=== PATIENT | female | born 1945 | race Two or more races ===

== ENCOUNTER 2021-04-26 18:46 | Inpatient (IN) | payer MEDICARE, OTHER ==
[~2021-04-26] VITALS: Ht 160 cm; Wt 63.5 kg
[2021-04-26] MEDS ORDERED: MAG HYDROX/AL HYDROX/SIMETH 30 ML UDC PO PRN (22:00)
[2021-04-26] MEDS ORDERED: BLOOD SUGAR DIAGNOSTIC 1 EACH STRIP IN ONE (22:00)
[2021-04-26] MEDS ORDERED: MAGNESIUM HYDROXIDE 30 ML UDC PO PRN (22:00)
[2021-04-26] MEDS ORDERED: LORAZEPAM 0.5 MG TABLET PO PRN (22:00)
[2021-04-26 22:55] VITALS: BP 105/65
--- NOTE | 2021-04-27 00:09 | NUR ---
ADMISSION NOTES: ADMITTED THIS 75Y/O FEMALE PATIENT ADMIT FROM [facility] / [facility] FROM [facility] , ADMITTED TO GPS ON 5150 HOLD, PER HOLD DTS, PT. WAS UPSET WITH HER DAGUHTER, SINCE HER DAUGHTER MOVED HER INTO AN ASSISSTED LIVING , SHE TOLD A FRIEND SHE WAS GOING TO TAKE HER PILLS ,PT. UNABLE TO CONTARCT FOR SAFETY , UPON FACE TO FACE ASSESSMENT PATIENT IS A&O X 2 , DEPRESSED ,EASILY AGITATED , PARNOID DISHELVED , AGITATED, DISORGNIZED, ,POOR HYGINE REFUSED TO TAKE SHOWER AT THIS TIME, PT. IS POOR HISTORIAN, POOR INSIGHT ,POOR JUDGEMENT, PT. DENIES SI HI AT THIS TIME , BOTH MD AWARE AND NOTIFIED OF THE ADMISSION, BELONGINGS CONTRABAND WERE DONE , PT. REFUSED TO SIGNS OF ADMISSION PAPER DUE TO MENTAL CONDITION,PT. RIGHTS DISCUSS BY PRIMARY NURSE , PROVIDE THE PT. WITH HANDBOOK, AND MEDICATIONS GUIDE, ENVIRONMENTAL SAFETY CHECK DONE, ENCOURAGED PT. VERBALIZED ANY FEELING CONCERN TO STAFF, ORIENT TO UNIT POLICY, NO ACUTE DISTRESS NOTED,VITAL SIGNS WNL ,DENIES ANY PAIN AT THIS TIME,WILL CONTINUE TO MONITOR FOR Q15 SAFETY AND BEHAVIOR.
[2021-04-27] MEDS ORDERED: ESCI10TA PO (01:25)
[2021-04-27] MEDS ORDERED: TRAZ-182 PO (01:25)
[2021-04-27] MEDS ORDERED: LORA-259 PO (01:25)
--- NOTE | 2021-04-27 06:33 | NUR ---
RN NOTES : CALLED FAMILY MEMBER REGRDING ABOUT PT. ADMISSION LEFT MESSAGE NURY JOINER # CALLED FAMILY MEMBER REGRDING ABOUT PT. ADMISSION LEFT MESSAGE ABRIL BATES #
--- NOTE | 2021-04-27 06:55 | NUR ---
RN NOTES: MRSA NARES SWAB COLLECT AND SEND TO THE LAB.
[2021-04-27 07:46] LABS: ALBUMIN 2.9 g/dL (3.4-5.0); BILIRUBIN,TOTAL 0.4 mg/dL (0.2-1.0); CALCIUM, SERUM 8.3 mg/dL (8.5-10.1); CREATININE 0.8 mg/dL (0.6-1.3); TOTAL PROTEIN, SERUM 6.1 g/dL (6.4-8.2)
[2021-04-27 07:56] LABS: CHOLESTEROL 188 mg/dL (<200); HDL CHOLESTEROL 53 mg/dL (40-60); LDL 115 mg/dL (0-99); TRIGLYCERIDES 101 mg/dL (30-150)
[2021-04-27 08:00] VITALS: BP 115/68
--- NOTE | 2021-04-27 09:50 | NUR ---
BENNY Initial Discharge Plan: Patient currently resides at [address] [place] [address] [address] [facility], [facility] [address]; ([phone]). Patient would want to return back. BENNY will work with the MD and family to help coordinate appropriate discharge.
--- NOTE | 2021-04-27 10:45 | NUR ---
SW Contact: BENNY contacted Margo ([phone]) and left a detailed voicemail.
--- NOTE | 2021-04-27 10:46 | NUR ---
SW Friend Contact: SW contacted pt's friend Jessie ([phone]) and left a voicemail to gather collateral and discuss treatment plan.
--- NOTE | 2021-04-27 10:54 | NUR ---
Treatment Plan: Pt refused to sign treatment and was suspicious of this staff.
--- NOTE | 2021-04-27 11:29 | NUR ---
BENNY Family Contact: SW spoke with pt's daughter Renuka ([phone]) who stated that she was living with pt for years and pt is unable to be cooperative. Pt unable to take care of herself and so pt moved to assisted living called [facility] and was residing there for a week. Renuka is unsure if they will take pt back, however, she stated she is open for nursing facility if they do not take pt back. Renuka expressed that on 05/01 she will be moving to [place] and will not be involved in pt's care as much.
--- NOTE | 2021-04-27 11:31 | NUR ---
[facility]: BENNY contacted [facility] ([phone]) and spoke with Manuel ([phone]) ([phone]) who stated they will take pt back upon discharge.
--- NOTE | 2021-04-27 13:13 | NUR ---
RN NOTE BLADIMIR JACINTO OBSERVED PT WITH SYNCOPIC EPISODE ON THE WAY TO PT RESTROOM. PT'S VITAL ARE STABLE. BS 117. NO S/S OF DISTRESS. DR. ZACK WINSLOW MADE AWARE. WILL CONTINUE TO MONITOR PATIENT THROUGHOUT SHIFT. Addendum: 04/28/21 at 1231 by CESIA CHILDS RN RN NOTE PT WALKED TO RESTROOM WITH BLADIMIR JACINTO AND BECAME LETHARGIC. AFTER HELP WAS CALLED TO [facility], CHARGE NURSE, PT WAS FOUND UNRESPONSIVE. CODE RAPID RESPONSE WAS INITIATED. VITAL SIGNS TAKEN BP 114/70 PULSE 84 RESP 14 TEMP. 97 BS 117 PULSE OX SAT 94%. RAPID RESPONSE TEAM AND DR. ZACK WINSLOW ARRIVED WITHIN 3 M[address] OF CODE. PER DR. ZACK WINSLOW, 1:1 SITTER FOR 4 HOURS AND MONITOR.
--- NOTE | 2021-04-27 15:00 | NUR ---
RN NOTE PT IS IN DAY ROOM, AWAKE. ALERT AND ORIENTED X 3. PT IS 2.5 HRS S/P SYNCOPIC EPISODE. PT IS WATCHING TV WITH SITTER. VITAL SIGNS STABLE. WILL CONTINUE TO MONITOR THROUGHOUT SHIFT.
[2021-04-27 16:00] VITALS: BP 153/70
[2021-04-27 20:00] VITALS: BP 110/68
[2021-04-27] MEDS: Z GUARD REMEDY 4 OZ OINT TP SCH (21:00)
[2021-04-27] MEDS: MIRTAZAPINE 15 MG TABLET PO SCH (21:45)
--- NOTE | 2021-04-27 21:50 | NUR ---
GPS RN NOTES: REMEDY Z GUARD UNAVAILABLE. WILL ENDORSE TO AM SHIFT FOR PUBLIC RELATIONS MANAGER FROM PHARMACY.
[2021-04-27] MEDS: TEMAZEPAM 7.5 MG CAPSULE PO PRN (22:25)
--- NOTE | 2021-04-27 22:26 | NUR ---
GPS RN NOTES: PATIENT REQUESTED FOR SLEEP MEDICATION. RESTORIL 7.5MG/1CAP GIVEN PO AT 2225. WILL CONTINUE TO MONITOR.
[2021-04-28 08:00] VITALS: BP 127/69
[2021-04-28] MEDS: Z GUARD REMEDY 4 OZ OINT TP SCH ×2 (08:02→21:14)
--- NOTE | 2021-04-28 11:24 | NUR ---
SNF Referral: BENNY sent pt's H & P notes, progress notes, and medication list to Nelson from [facility] ([phone]) for placement.
[2021-04-28 12:33] VITALS: BP 114/70
[2021-04-28 12:49] VITALS: BP 114/70
[2021-04-28 16:00] VITALS: BP 128/63
[2021-04-28 20:00] VITALS: BP 110/67
[2021-04-28] MEDS: MIRTAZAPINE 15 MG TABLET PO SCH (20:58)
[2021-04-29 08:00] VITALS: BP 121/69
[2021-04-29] MEDS: Z GUARD REMEDY 4 OZ OINT TP SCH ×2 (08:29→21:24)
[2021-04-29 16:00] VITALS: BP 102/61
[2021-04-29 20:08] VITALS: BP 99/51
[2021-04-29 20:17] VITALS: BP 99/51
[2021-04-29] MEDS: MIRTAZAPINE 15 MG TABLET PO SCH (21:23)
[2021-04-29 21:30] VITALS: BP 113/67
[2021-04-30 08:00] VITALS: BP 111/65
[2021-04-30] MEDS: Z GUARD REMEDY 4 OZ OINT TP SCH ×2 (08:50→21:22)
[2021-04-30] MEDS: LORAZEPAM 1 MG TABLET PO PRN (15:24)
[2021-04-30 16:00] VITALS: BP 112/57
[2021-04-30 19:45] VITALS: BP 99/49
[2021-04-30 21:40] VITALS: BP 105/64
[2021-04-30] MEDS: MIRTAZAPINE 15 MG TABLET PO SCH (21:50)
[2021-05-01 08:00] VITALS: BP 134/64
--- NOTE | 2021-05-01 09:00 | NUR ---
RN NOTE- RECEIVED PT RESTING IN HER BED A/O X2. FLAT AFFECT, COOPERATIVE, GUARDED, ANXIOUS AT TIMES. DENIES SI/HI AT THIS TIME. DENIES PAIN. NO S/S OF DISTRESS,ALL NEEDS ATTENDED AND ANTICIPATED WILL CONTINUE TO MONITOR Q15 FOR SAFETY, MOOD AND BEHAVIOR.
[2021-05-01] MEDS: Z GUARD REMEDY 4 OZ OINT TP SCH ×2 (09:13→20:43)
--- NOTE | 2021-05-01 09:48 | NUR ---
BENNY Family Contact: BENNY received a call from pt's cousin Andrea who lives in [place] ([phone]) who stated that this field underwriter will not be able to contact him. He wanted to know pt's discharge plan. BENNY expressed pt will need a SNF upon dc, he was agreeable with this.
--- NOTE | 2021-05-01 09:49 | NUR ---
SNF Contact: SW received a call from Omar from [facility] ([phone]) who stated pt is accepted.
[2021-05-01] MEDS: LORAZEPAM 1 MG TABLET PO PRN ×3 (11:11→19:53)
--- NOTE | 2021-05-01 11:12 | NUR ---
RN NOTE- PT CRYING LABILE SAYING "I NEED HELP" REDIRECTED, ASSISTED TO ROOM, SPOKE W PT. ATIVAN 1 MG ADMINISTERED.
--- NOTE | 2021-05-01 12:33 | NUR ---
BENNY Note: SW discussed discharge planning with pt. Pt stated she would want a nursing facility. SW stated she is accepted at [facility]. Pt is acceptable with this.
--- NOTE | 2021-05-01 15:48 | NUR ---
RN NOTE- PT ANXIOUS CRYING. ATIVAN 1 MG ADMINISTERED
[2021-05-01 16:00] VITALS: BP 124/69
[2021-05-01 20:12] VITALS: BP 100/47
[2021-05-01] MEDS: MIRTAZAPINE 15 MG TABLET PO SCH (21:09)
[2021-05-01] MEDS: TEMAZEPAM 7.5 MG CAPSULE PO PRN (21:15)
[2021-05-02 08:00] VITALS: BP 133/70
[2021-05-02] MEDS: Z GUARD REMEDY 4 OZ OINT TP SCH ×2 (08:48→21:57)
--- NOTE | 2021-05-02 09:00 | NUR ---
RN NOTE- PT IN BED FLAT AFFECT, COOPERATIVE, GUARDED, ANXIOUS AT TIMES. DENIES SI/HI AT THIS TIME. DENIES PAIN. NO S/S OF DISTRESS,ALL NEEDS ATTENDED AND ANTICIPATED WILL CONTINUE TO MONITOR Q15 FOR SAFETY, MOOD AND BEHAVIOR.
[2021-05-02] MEDS: LORAZEPAM 1 MG TABLET PO PRN ×3 (10:28→19:41)
--- NOTE | 2021-05-02 10:28 | NUR ---
RN NOTE- CRYING ANXIETY. ATIVAN 1 MG GIVEN
--- NOTE | 2021-05-02 11:18 | NUR ---
SW Note: SW met with pt and discussed pt's discharge plan. Pt appeared anxious and tearful. SW shared that her daughter moved to [place] and cousin who is in [place] stated they are unable to pay for pt's finances at the assisted living and will be needing a SNF. SW explained this to pt. Pt was tearful and in denial. However, towards the end pt was accepting of this.
--- NOTE | 2021-05-02 15:10 | NUR ---
RN NOTE- ANXIETY PRESENT . IRRITABLE. ATIVAN 1 MG ADMINISTERED
[2021-05-02 16:00] VITALS: BP 121/64
[2021-05-02 20:00] VITALS: BP 113/61
[2021-05-02] MEDS: MIRTAZAPINE 15 MG TABLET PO SCH (21:47)
[2021-05-02] MEDS: TEMAZEPAM 7.5 MG CAPSULE PO PRN (22:36)
[2021-05-03] MEDS: LORAZEPAM 1 MG TABLET PO PRN ×3 (02:29→15:03)
[2021-05-03 08:00] VITALS: BP 134/67
[2021-05-03] MEDS: Z GUARD REMEDY 4 OZ OINT TP SCH ×2 (09:39→21:03)
--- NOTE | 2021-05-03 10:36 | NUR ---
BENNY Family Contact: SW received a call from pt's former Jacob ([phone]) who wanted updates on pt's discharge and well-being.
--- NOTE | 2021-05-03 11:04 | NUR ---
RN-NOTES NOTED PATIENT SCREAMING AND YELLING AT THE STAFF AT THE NURSE STATION. MULTIMEDIA DEVELOPER DID HELP AND REDIRECTED. PATIENT STATED" I'M DEPRESSED AND NO ONE HELP ME", TRIED TO HELP PATIENT BUT SHE'S VERY ANGRY,CURSING AND BLAMING STAFF OF BEING HERE, DEMANDING TO GO HOME. EXPLAINED THAT SHE'S ON HOLD. OFFERED ATIVAN AND AGREED . ATIVAN 1MG P.O GIVEN PRN ORDER. WILL CONT. MONITORING FOR SAFETY AND BEHAVIOR. ALL NEEDS ATTENDED AND ANTICIPATED.
[2021-05-03] MEDS ORDERED: LORAZEPAM INJ 2 MG/ML VIAL IM ONE (11:30)
[2021-05-03] MEDS ORDERED: HALOPERIDOL LACTATE INJ 5 MG/ML VIAL IM ONE (11:30)
[2021-05-03] MEDS ORDERED: HALOPERIDOL LACTATE INJ 5 MG/ML VIAL IM STA (11:35)
--- NOTE | 2021-05-03 11:51 | NUR ---
RN-NOTES NOTED PATIENT WITH CONTINUES SCREAMING AND YELLING CURSING STAFF AND PUSH ONE OF THE WOW AND HIT THE WALL ON THE HALLWAY WITH HER BOTH HANDS . DR. LOVELL MADE AWARE WITH T.O ORDER OF ATIVAN 1MG IM ONCE AND HALDOL 2MG IM ONCE. NOTED AND CARRIED OUT.WILL CONT. MONITORING FOR SAFETY AND BEHAVIOR.
--- NOTE | 2021-05-03 15:02 | NUR ---
Court Hearing: Patient's court hearing for 5250 was today and it was upheld for danger to self and GD.
--- NOTE | 2021-05-03 15:04 | NUR ---
RN-NOTES PATIENT IN THE NURSE STATION STATED" IT'S TIME FOR MY ATIVAN, I'M VERY ANXIOUS". ATIVAN 1MG P.O GIVEN PRN ORDER. WILL CONT. MONITORING FOR SAFETY AND BEHAVIOR.
[2021-05-03 16:00] VITALS: BP 123/64
--- NOTE | 2021-05-03 16:10 | NUR ---
RN-NOTES PATIENT SLEEPING IN BED EASILY AROUSED NO ACUTE DISTRESS NOTED.
[2021-05-03 20:00] VITALS: BP 122/70
[2021-05-03] MEDS: TRAZODONE 50 MG TABLET PO SCH (21:03)
[2021-05-03] MEDS: TEMAZEPAM 7.5 MG CAPSULE PO PRN (21:03)
[2021-05-03] MEDS: ACETAMINOPHEN 325 MG TABLET PO PRN (21:51)
[2021-05-04 08:00] VITALS: BP 118/63
[2021-05-04] MEDS: clonazePAM 0.5 MG TABLET PO SCH ×3 (09:33→16:52)
[2021-05-04] MEDS: Z GUARD REMEDY 4 OZ OINT TP SCH ×2 (09:34→21:40)
[2021-05-04 16:00] VITALS: BP 128/74
[2021-05-04 20:15] VITALS: BP 121/63
[2021-05-04] MEDS: TRAZODONE 50 MG TABLET PO SCH (21:33)
[2021-05-04] MEDS: TEMAZEPAM 7.5 MG CAPSULE PO PRN (22:44)
--- NOTE | 2021-05-04 22:46 | NUR ---
GPS RN NOTE: Patient complaint of Insomnia. Restoril 7.5 mg offered and given, which appears to be effective.
[2021-05-04] MEDS: ACETAMINOPHEN 325 MG TABLET PO PRN (23:52)
[2021-05-05 08:00] VITALS: BP 107/59
[2021-05-05] MEDS: Z GUARD REMEDY 4 OZ OINT TP SCH ×2 (09:08→20:51)
[2021-05-05] MEDS: clonazePAM 0.5 MG TABLET PO SCH ×3 (09:08→16:25)
[2021-05-05] MEDS: ACETAMINOPHEN 325 MG TABLET PO PRN (13:58)
[2021-05-05 16:00] VITALS: BP 129/65
[2021-05-05 20:21] VITALS: BP 99/67
[2021-05-05] MEDS: TEMAZEPAM 7.5 MG CAPSULE PO PRN (20:21)
[2021-05-05] MEDS: TRAZODONE 50 MG TABLET PO SCH (20:21)
[2021-05-05] MEDS ORDERED: TRAZODONE 50 MG TABLET PO PRN (21:00)
[2021-05-05] MEDS ORDERED: TRAZODONE 50 MG TABLET PO ONE (22:00)
[2021-05-06] MEDS: ACETAMINOPHEN 325 MG TABLET PO PRN (05:34)
[2021-05-06 08:00] VITALS: BP 114/69
[2021-05-06] MEDS: clonazePAM 0.5 MG TABLET PO SCH ×3 (09:00→16:19)
[2021-05-06] MEDS: Z GUARD REMEDY 4 OZ OINT TP SCH ×2 (09:06→21:02)
[2021-05-06 16:00] VITALS: BP 121/65
[2021-05-06 19:59] VITALS: BP 124/72
[2021-05-06] MEDS: TRAZODONE 50 MG TABLET PO SCH (21:20)
[2021-05-07 08:00] VITALS: BP 115/57
[2021-05-07] MEDS: clonazePAM 0.5 MG TABLET PO SCH ×3 (08:49→16:25)
[2021-05-07] MEDS: Z GUARD REMEDY 4 OZ OINT TP SCH ×2 (08:49→21:42)
[2021-05-07 16:00] VITALS: BP 109/72
[2021-05-07 19:54] VITALS: BP 112/61
[2021-05-07 20:10] VITALS: BP 112/61
[2021-05-07] MEDS: TRAZODONE 50 MG TABLET PO SCH (21:42)
[2021-05-08 08:00] VITALS: BP 107/59
[2021-05-08] MEDS: clonazePAM 0.5 MG TABLET PO SCH ×3 (08:20→16:09)
[2021-05-08] MEDS: Z GUARD REMEDY 4 OZ OINT TP SCH ×2 (08:20→20:19)
--- NOTE | 2021-05-08 09:00 | NUR ---
RN NOTE- PT LETHARGIC AND SOMNOLENT THIS MORNING, VS STABLE NEEDS ATTENDED, MONITOR ASSIST PRN
--- NOTE | 2021-05-08 13:37 | NUR ---
BENNY Family Contact: SW attempted to contact patients daughter Renuka ([phone]) to leave a voicemail, however, mailbox was full.
--- NOTE | 2021-05-08 13:38 | NUR ---
SW Note: Patient is accepting and wants to go to [facility].
--- NOTE | 2021-05-08 13:39 | NUR ---
BENNY Family Contact: SW contacted pt's cousin Andrea and notified of pts discharge day and where pt would go [phone]).
[2021-05-08 16:00] VITALS: BP 129/72
[2021-05-08 19:53] VITALS: BP 118/73
[2021-05-08 20:00] VITALS: BP 118/73
[2021-05-08] MEDS: TRAZODONE 50 MG TABLET PO SCH (21:19)
--- NOTE | 2021-05-08 21:22 | NUR ---
RN GPS notes Pt gets agitated, screaming loudly and refuse anything. Called the staffs "assholes". Reality orientation is provided. Pt keep refusing and gets loud. Will continue to monitor.
[2021-05-09 08:00] VITALS: BP 101/54
--- NOTE | 2021-05-09 08:41 | NUR ---
BENNY Family Contact: SW attempted to contact patient's daughter Urszula ([phone]) and was unable to leave a voicemail. Voicemail was full.
[2021-05-09] MEDS: Z GUARD REMEDY 4 OZ OINT TP SCH ×2 (08:44→21:21)
[2021-05-09] MEDS: clonazePAM 0.5 MG TABLET PO SCH ×3 (08:44→16:38)
--- NOTE | 2021-05-09 09:00 | NUR ---
RN NOTE- PT INTERACTIVE VS STABLE NEEDS ATTENDED, MONITOR ASSIST PRN
[2021-05-09 20:00] VITALS: BP 104/60
[2021-05-09] MEDS: TRAZODONE 50 MG TABLET PO SCH (21:19)
[2021-05-09] MEDS: TEMAZEPAM 7.5 MG CAPSULE PO PRN (21:19)
--- NOTE | 2021-05-09 21:47 | NUR ---
RN NOTE: PT VERBALIZED HAVING TROUBLE SLEEPING ON TOP OF HER TRAZADONE SHE RECEIVES. PT REQUESTED SLEEPING AID, RESTORIL ORDERED PRN NOTED AND PT AGREED TO TAKING MED. AT TIME OF ADMINISTRATION PT BECAME TEARFUL AND REFUSED RESTORIL VERBALIZING " NO I DONT WANT THAT, IM SO SLEEPY ALREADY" PT DENIES NOW HAVING EVER ASKED FOR SLEEPING MEDICATION TO BEGIN WITH. WILL CONT TO MONITOR FOR SAFETY AND BEHAVIOR THROUGHOUT SHIFT
[2021-05-10 08:00] VITALS: BP 107/57
--- NOTE | 2021-05-10 08:16 | NUR ---
SW Discharge: Patient will be discharged to [facility] located at [address] [place] [address]; [phone]) Please arrange ambulance transportation. General Internal Medicine Physician spoke with Omar, Cash Register Balancer at [facility] ([phone]) stated patient will be accepted at facility today. Patient is alert and oriented x2, and is not able to plan for self-care at this time, but is willing to accept care provided for her at the facility. Patient denies any suicidal or homicidal ideations. Patient is aware and agreeable with discharge plans. Patients daughter Renuka ([phone]) is aware and agreeable with discharge. Patient will continue to follow-up with her (Psychiatrist) located at [address], [place] [address]; ([phone]) and (Supervisor Baking) Dr. Swanson [address] [facility] [address], [place] [address]; ([phone]). Patient presents with euthymic mood and congruent affect.
[2021-05-10] MEDS: clonazePAM 0.5 MG TABLET PO SCH ×2 (09:47→12:56)
[2021-05-10] MEDS: Z GUARD REMEDY 4 OZ OINT TP SCH (09:47)
--- NOTE | 2021-05-10 14:30 | NUR ---
RN-DISCHARGE NOTES PATIENT HAD A DISCHARGE ORDER FROM DR. LOVELL ( PSYCHIATRIST) DORA BLAKE MEDICALLY CLEARED PATIENT FOR DISCHARGE. REPORT WAS GIVEN TO KRYSTA (FACILITY DESK NURSE) ALSO REGIONAL CRA WAS MADE HER AWARE THAT PATIENT WILL BE DISCHARGED WITH A POOL OF $5,996.OO DOLLARS.PATIENT LEFT THE UNIT IN STABLE CONDITION A/O X3 EPISODE OF FORGETFUL. PATIENT DID NOT VERBALIZE SI/HI,DENIES VISUAL/AUDITORY HALLUCINATIONS AT THE TIME OF DISCHARGE.PATIENT REFUSED FLU VACCINE ALSO REFUSED FULL BODY ASSESSMENT PRIOR TO DISCHARGE. STATED" I DON'T HAVE PROBLEMS WITH MY SKIN, ITS PERFECT". PER SW, PT'S DTR CHILO WAS AWARE OF THE DISCHARGE. PATIENT LEFT THE UNIT WITH ALL HER BELONGINGS INCLUDING A POOL OF $5,996.00 POOL, IT WAS COUNTED IN FRONT OF THE PATIENT AND WAS WITNESS AND ENDORSED TO THE EMT STAFF ( GENOVEVA).
== END 2021-05-10 14:25 | DRG 885 ==
LOC: GPS 20:57
PROVIDERS: ADMIT Psychiatry & Neurology Psychiatry
DX: F33.9 Major depressive disorder, recurrent, unspecified (principal); F29 Unspecified psychosis not due to a substance or known physiological condition; F41.9 Anxiety disorder, unspecified; G90.8 Other disorders of autonomic nervous system; I10 Essential (primary) hypertension; T50.902D Poisoning by unspecified drugs, medicaments and biological substances, intentional self-harm, subsequent encounter; G47.00 Insomnia, unspecified; F03.90 Unspecified dementia, unspecified severity, without behavioral disturbance, psychotic disturbance, mood disturbance, and anxiety; E88.09 Other disorders of plasma-protein metabolism, not elsewhere classified; Z85.3 Personal history of malignant neoplasm of breast
CPT/HCPCS: 36415; 80053-TC; 80061-TC; 82962-TC; 87081-TC; 97112-TC; 97116-TC; 97530-TC; J1630; J2060

== ENCOUNTER 2021-06-14 21:50 | Inpatient (IN) | payer MEDICARE, OTHER ==
[~2021-06-14] VITALS: Ht 162.6 cm; Wt 61.2 kg
[~2021-06-14 21:50] MED LIST: ESCI10TA PO; LORA-259 PO; TRAZ-182 PO
--- NOTE | 2021-06-14 22:09 | NUR ---
ADAN FROM SNF FOR PSYCHIATRIC EVALUATION AND ADMISSION DUE TO SI. PER EMT PT ATTEMPTED TO HURT HERSELF IN HER ABDOMEN W/ A WRITING PEN. PT A, OX4, AMBULATORY W/ STEADY GAITS. WAS PLACED IN BED 13 ER. VSS. NOTED W/ A SMALL SKIN DISCOLORATION ON THE ABDOMEN. DENIED ANY PAIN OR DISCOMFORT. SI PRECAUTION IMPLMENTED . SITTER AT BED SIDE. WILL CONT TO ALYSSA,
--- NOTE | 2021-06-14 22:14 | NUR ---
urine sent to lab
[2021-06-14 22:30] LABS: BILIRUBIN,URINE NEGATIVE (NEGATIVE); COLOR,URINE YELLOW (YELLOW); LEUKOCYTE ESTERASE ,URINE SMALL (NEGATIVE); NITRITE, URINE NEGATIVE (NEGATIVE); PH,URINE 6.5 (5.0-8.0); PROTEIN,URINE NEGATIVE (NEGATIVE); UGLUCOSE NEGATIVE (NEGATIVE); UROBILINOGEN,URINE 0.2 EU/dL (0.2)
[2021-06-14 22:57] LABS: BASOPHILS # (AUTO) 0.1 K/uL (0.0-0.2); BASOPHILS % (AUTO) 0.7 % (0.0-2.0); EOSINOPHILS % (AUTO) 1.6 % (0.0-6.0); HEMATOCRIT 41 % (33-45); HEMOGLOBIN 13.8 g/dL (11.5-14.8); LYMPHOCYTES # (AUTO) 1.8 K/uL (0.8-4.8); LYMPHOCYTES % (AUTO) 24.4 % (20.0-44.0); MEAN CORPUSCULAR HGB CONC 33 g/dl (31.0-36.0); MEAN CORPUSCULAR VOLUME 93 fL (82-100); MONOCYTES # (AUTO) 0.5 K/uL (0.1-1.30); MONOCYTES % (AUTO) 7.1 % (2.0-12.0); NEUTROPHILS # (AUTO) 4.8 K/uL (1.8-8.9); NEUTROPHILS % (AUTO) 66.2 % (43.0-81.0); PLATELET COUNT (AUTO) 228 K/uL (150-450); RED BLOOD CELL COUNT(AUTO) 4.45 MIL/uL (4.0-5.2); WHITE BLOOD COUNT (AUTO) 7.3 K/uL (4.3-11.0)
[2021-06-14 23:31] LABS: ALANINE AMINOTRANSFERASE 12 U/L (12-78); ALBUMIN 3.2 g/dL (3.4-5.0); ALCOHOL, BLOOD < 3 mg/dL (0-0); ALKALINE PHOSPHATASE 74 U/L (46-116); ASPARTATE AMINOTRANSFERASE 9 U/L (15-37); BILIRUBIN,DIRECT 0.1 mg/dL (0.0-0.2); BILIRUBIN,TOTAL 0.2 mg/dL (0.2-1.0); CALCIUM, SERUM 8.7 mg/dL (8.5-10.1); CARBON DIOXIDE 33 mmol/L (21-32); CHLORIDE 105 mmol/L (98-107); GLUCOSE 103 mg/dL (74-106); POTASSIUM 3.7 mmol/L (3.5-5.1); SODIUM SERUM 143 mmol/L (136-145); TOTAL PROTEIN, SERUM 6.6 g/dL (6.4-8.2); UREA NITROGEN, BLOOD 16 mg/dL (7-18)
[2021-06-14 23:32] LABS: ACETAMINOPHEN 0 ug/ml (10-30)
--- NOTE | 2021-06-14 23:32 | NUR ---
[place] [facility]IS[facility] TEAM PAGED FOR EVAL.
[2021-06-15] MEDS ORDERED: LORA-259 PO (00:21)
[2021-06-15] MEDS ORDERED: SENN-18 PO (00:21)
[2021-06-15] MEDS ORDERED: DOCU-141 PO (00:21)
[2021-06-15] MEDS ORDERED: AMLO2.5T4 PO (00:21)
[2021-06-15] MEDS ORDERED: PANT40TA2 PO (00:21)
[2021-06-15] MEDS ORDERED: CLON0.5T4 PO (00:21)
[2021-06-15] MEDS ORDERED: TRAZ-257 PO (00:21)
[2021-06-15] MEDS ORDERED: LORAZEPAM 1 MG TABLET PO ONE (01:00)
[2021-06-15] MEDS ORDERED: LORAZEPAM 1 MG TABLET ONE (01:38)
--- NOTE | 2021-06-15 01:40 | NUR ---
REPORT GIVEN TO NIKOLAI AT [facility]
[2021-06-15] MEDS ORDERED: BLOOD SUGAR DIAGNOSTIC 1 EACH STRIP IN ONE (02:30)
[2021-06-15] MEDS ORDERED: ACETAMINOPHEN 325 MG TABLET PO PRN (02:30)
--- NOTE | 2021-06-15 02:38 | NUR ---
GPS ADMISSION NOTE, RECEIVED PATIENT FROM [facility]. PATIENT ARRIVAL TIME 0145 VIA STRETCHER WITH 1 EMT ESCORT. PATIENT ADMITTED ON A 5150 HOLD FOR DANGER TO SELF. PER HOLD, PATIENT WAS FEELING SUICIDAL WITH A PLAN TO STAB SELF IN BELLY WITH A PEN. PATIENT WAS COMPLIANT AND SIGNED PAPERWORK. UPON FACE TO FACE ASSESSMENT, PATIENT APPEARS TO BE DEPRESSED AND ASKED FOR A CUP OF WATER. RESPIRATIONS ARE EVEN AND UNLABORED WITH NO SOB NOTED. PATIENT IS ALERT ORIENTED X3. PATIENT CURRENTLY DENIES ANY SUICIDAL IDEATION AND HOMICIDAL IDEATION AT THIS TIME. PATIENT ADVISED OF HOLD AND PATIENT RIGHTS BOOKLET WAS GIVEN. PATIENT BELONGINGS CHECKED FOR CONTRABAND. SKIN ASSESSMENT COMPLETED. PATIENT ORIENTED TO ROOM, FLOOR, AND STAFF WITH ALL QUESTIONS ANSWERED. PATIENT EDUCATED ON THE USE OF THE CALL DAHL. PATIENT BED SIDE RAILS UP X2 FOR SAFETY. BED LOCKED, LOW, AND WILL CONTINUE TO MONITOR Q 15 MINUTES FOR SAFETY.
[2021-06-15 04:00] VITALS: BP 129/77
[2021-06-15 06:20] LABS: BACTERIA,URINE None seen /HPF (None Seen); RBC,URINE NONE SEEN /HPF (0-2); SQUAMOUS EPITHELIAL CELL,UR None Seen /HPF (None Seen)
[2021-06-15 06:44] VITALS: BP 154/79
[2021-06-15 08:00] VITALS: BP 129/69
[2021-06-15] MEDS: LORAZEPAM 0.5 MG TABLET PO PRN ×2 (09:42→15:06)
--- NOTE | 2021-06-15 09:44 | NUR ---
RN-NOTES PATIENT STATED" I NEED ATIVAN BECAUSE I'M GETTING ANXIOUS". ATIVAN 1MG P.O GIVEN PRN ORDER. WILL CONT. MONITORING FOR SAFETY AND BEHAVIOR.
--- NOTE | 2021-06-15 10:45 | NUR ---
RN-NOTES PATIENT SLEEPING , EASILY AROUSED NO ACUTE DISTRESS NOTED.
--- NOTE | 2021-06-15 15:10 | NUR ---
RN-NOTES PATIENT STATED" I NEED MY NEXT ATIVAN I'M GETTING ANXIOUS AGAIN". ATIVAN 1MG P.O GIVEN PRN ORDER. WILL CONT. MONITORING FOR SAFETY AND BEHAVIOR.
[2021-06-15 16:00] VITALS: BP 145/76
[2021-06-15] MEDS: DOCUSATE SODIUM 100 MG CAPSULE PO SCH (16:14)
[2021-06-15 20:12] VITALS: BP 148/77
[2021-06-15 20:22] VITALS: BP 148/77
[2021-06-15] MEDS: TRAZODONE 50 MG TABLET PO SCH (21:42)
[2021-06-16 07:29] LABS: BILIRUBIN,TOTAL 0.5 mg/dL (0.2-1.0); CALCIUM, SERUM 8.6 mg/dL (8.5-10.1); CREATININE 0.7 mg/dL (0.6-1.3); POTASSIUM 3.5 mmol/L (3.5-5.1)
[2021-06-16 07:30] LABS: BASOPHILS % (AUTO) 0.7 % (0.0-2.0); EOSINOPHILS % (AUTO) 2.4 % (0.0-6.0); HEMATOCRIT 39 % (33-45); HEMOGLOBIN 13.3 g/dL (11.5-14.8); LYMPHOCYTES # (AUTO) 1.6 K/uL (0.8-4.8); LYMPHOCYTES % (AUTO) 27.5 % (20.0-44.0); MEAN CORPUSCULAR HGB CONC 34 g/dl (31.0-36.0); MEAN CORPUSCULAR VOLUME 92 fL (82-100); MONOCYTES # (AUTO) 0.5 K/uL (0.1-1.30); MONOCYTES % (AUTO) 8.7 % (2.0-12.0); NEUTROPHILS # (AUTO) 3.4 K/uL (1.8-8.9); NEUTROPHILS % (AUTO) 60.7 % (43.0-81.0); PLATELET COUNT (AUTO) 217 K/uL (150-450); RED BLOOD CELL COUNT(AUTO) 4.24 MIL/uL (4.0-5.2); WHITE BLOOD COUNT (AUTO) 5.7 K/uL (4.3-11.0)
[2021-06-16 07:37] LABS: CHOLESTEROL 173 mg/dL (<200); HDL CHOLESTEROL 56 mg/dL (40-60); LDL 97 mg/dL (0-99); TRIGLYCERIDES 87 mg/dL (30-150)
[2021-06-16 08:00] VITALS: BP 100/57
[2021-06-16] MEDS: DOCUSATE SODIUM 100 MG CAPSULE PO SCH ×2 (09:00→17:32)
[2021-06-16] MEDS: AMLODIPINE BESYLATE 2.5 MG TABLET PO SCH (09:00)
[2021-06-16] MEDS: LORAZEPAM 1 MG TABLET PO SCH ×3 (09:00→17:32)
[2021-06-16] MEDS: PANTOPRAZOLE 40 MG TABLET.DR PO SCH (09:02)
[2021-06-16] MEDS: SENNOSIDES 8.6 MG TABLET PO SCH (09:02)
[2021-06-16] MEDS: SERTRALINE HCL 50 MG TABLET PO SCH (09:02)
--- NOTE | 2021-06-16 11:11 | NUR ---
SW SNF Contact: SW spoke with Randi admissions from [facility] located at [address] [place] [facility] [place] [address]; ([phone]) who stated pt is welcomed back upon dc.
--- NOTE | 2021-06-16 11:27 | NUR ---
BENNY Family Contact: BENNY contacted patient's daughter Renuka ([phone]) to notify of patient's admission. SW discussed treatment and discharge planning. Daughter stated she is back in [place] and is no longer in [place]. She is minimally involved in patient's care and would want to be notified when pt is stable.
--- NOTE | 2021-06-16 11:27 | NUR ---
BENNY Initial Discharge Plan: Pt currently resides at [facility] and will be returning back. BENNY contacted Randi admission from [facility] ([phone]) who stated that pt is welcomed back upon discharge. BENNY will work with the pt, family, and treatment team to coordinate appropriate discharge.
[2021-06-16 16:00] VITALS: BP 133/71
[2021-06-16 20:25] VITALS: BP 118/61
[2021-06-16 20:28] VITALS: BP 108/61
[2021-06-16] MEDS: TRAZODONE 50 MG TABLET PO SCH (21:17)
--- NOTE | 2021-06-17 06:15 | NUR ---
RN NOTE PATIENT SLEPT WELL AT NIGHT. NO CHANGE OF CONDITION NOTED.
[2021-06-17] MEDS: PANTOPRAZOLE 40 MG TABLET.DR PO SCH (07:59)
[2021-06-17 08:00] VITALS: BP 100/50
[2021-06-17] MEDS: AMLODIPINE BESYLATE 2.5 MG TABLET PO SCH (09:00)
[2021-06-17] MEDS: LORAZEPAM 1 MG TABLET PO SCH ×3 (09:19→16:56)
[2021-06-17] MEDS: SERTRALINE HCL 50 MG TABLET PO SCH (09:19)
[2021-06-17] MEDS: DOCUSATE SODIUM 100 MG CAPSULE PO SCH ×2 (09:19→16:57)
[2021-06-17] MEDS: SENNOSIDES 8.6 MG TABLET PO SCH (09:19)
[2021-06-17 16:00] VITALS: BP 131/77
[2021-06-17 20:05] VITALS: BP 106/58
[2021-06-17] MEDS: TRAZODONE 50 MG TABLET PO SCH (21:01)
[2021-06-18] MEDS: PANTOPRAZOLE 40 MG TABLET.DR PO SCH (07:51)
[2021-06-18 08:00] VITALS: BP 105/54
[2021-06-18] MEDS: DOCUSATE SODIUM 100 MG CAPSULE PO SCH ×2 (08:04→16:53)
[2021-06-18] MEDS: SERTRALINE HCL 50 MG TABLET PO SCH (08:04)
[2021-06-18] MEDS: SENNOSIDES 8.6 MG TABLET PO SCH (08:04)
[2021-06-18] MEDS: LORAZEPAM 1 MG TABLET PO SCH ×3 (08:05→16:53)
[2021-06-18] MEDS: AMLODIPINE BESYLATE 2.5 MG TABLET PO SCH (08:05)
[2021-06-18 16:00] VITALS: BP 117/59
[2021-06-18] MEDS: MAG HYDROX/AL HYDROX/SIMETH 30 ML UDC PO PRN (17:23)
[2021-06-18 20:09] VITALS: BP 123/69
[2021-06-18] MEDS: TRAZODONE 50 MG TABLET PO SCH (21:32)
[2021-06-19] MEDS: PANTOPRAZOLE 40 MG TABLET.DR PO SCH (07:30)
[2021-06-19 08:00] VITALS: BP 117/68
[2021-06-19] MEDS: DOCUSATE SODIUM 100 MG CAPSULE PO SCH ×2 (08:51→17:40)
[2021-06-19] MEDS: SENNOSIDES 8.6 MG TABLET PO SCH (08:51)
[2021-06-19] MEDS: SERTRALINE HCL 50 MG TABLET PO SCH (08:51)
[2021-06-19] MEDS: LORAZEPAM 1 MG TABLET PO SCH ×3 (08:52→21:40)
[2021-06-19] MEDS: AMLODIPINE BESYLATE 2.5 MG TABLET PO SCH (08:52)
[2021-06-19] MEDS: MAG HYDROX/AL HYDROX/SIMETH 30 ML UDC PO PRN (10:11)
[2021-06-19 16:00] VITALS: BP 120/69
[2021-06-19] MEDS: LORAZEPAM 0.5 MG TABLET PO SCH (17:40)
[2021-06-19 20:03] VITALS: BP 112/60
[2021-06-19 20:45] VITALS: BP 112/60
[2021-06-19] MEDS: TRAZODONE 50 MG TABLET PO SCH (22:42)
--- NOTE | 2021-06-20 06:54 | NUR ---
RN NOTE PATIENT SLEPT WELL AT NIGHT. NO BEHAVIOR EPISODE NOTED THROUGH OUT THE SHIFT.
[2021-06-20 08:00] VITALS: BP 117/72
[2021-06-20] MEDS: DOCUSATE SODIUM 100 MG CAPSULE PO SCH ×2 (08:07→16:26)
[2021-06-20] MEDS: LORAZEPAM 0.5 MG TABLET PO SCH ×2 (08:07→14:44)
[2021-06-20] MEDS: AMLODIPINE BESYLATE 2.5 MG TABLET PO SCH (08:07)
[2021-06-20] MEDS: PANTOPRAZOLE 40 MG TABLET.DR PO SCH (08:07)
[2021-06-20] MEDS: SENNOSIDES 8.6 MG TABLET PO SCH (08:07)
[2021-06-20] MEDS: SERTRALINE HCL 50 MG TABLET PO SCH (08:07)
[2021-06-20] MEDS: MAG HYDROX/AL HYDROX/SIMETH 30 ML UDC PO PRN (14:35)
[2021-06-20 16:06] VITALS: BP 107/64
[2021-06-20] MEDS: CEPHALEXIN MONOHYDRATE 500 MG CAPSULE PO SCH (16:26)
[2021-06-20 20:00] VITALS: BP 124/60
[2021-06-20 20:28] VITALS: BP 124/60
[2021-06-20] MEDS: LORAZEPAM 1 MG TABLET PO SCH (21:17)
[2021-06-20] MEDS: TRAZODONE 50 MG TABLET PO SCH (22:02)
--- NOTE | 2021-06-20 23:30 | NUR ---
RN NOTE PATIENT SEEN BY DR. LOVELL WITH NO NEW ORDER AT THIS TIME.
[2021-06-21] MEDS: PANTOPRAZOLE 40 MG TABLET.DR PO SCH (07:41)
[2021-06-21 08:00] VITALS: BP 100/57
[2021-06-21] MEDS: AMLODIPINE BESYLATE 2.5 MG TABLET PO SCH (09:00)
[2021-06-21] MEDS: SERTRALINE HCL 50 MG TABLET PO SCH (09:59)
[2021-06-21] MEDS: SENNOSIDES 8.6 MG TABLET PO SCH (10:00)
[2021-06-21] MEDS: CEPHALEXIN MONOHYDRATE 500 MG CAPSULE PO SCH ×2 (10:01→17:14)
[2021-06-21] MEDS: DOCUSATE SODIUM 100 MG CAPSULE PO SCH ×2 (10:01→17:14)
[2021-06-21] MEDS: LORAZEPAM 0.5 MG TABLET PO SCH ×2 (10:01→13:46)
[2021-06-21] MEDS: MAGNESIUM HYDROXIDE 30 ML UDC PO PRN ×2 (11:58→15:41)
--- NOTE | 2021-06-21 14:36 | NUR ---
BENNY Note: SW met with pt to conduct therapy. Pt appeared withdrawn and isolative in her room. Pt stated that she is feeling depressed because she has "a lot of problems and no one can help with my problems". SW attempted to help pt express her emotions and feelings but pt appeared guarded.
[2021-06-21 16:00] VITALS: BP 128/74
[2021-06-21 20:27] VITALS: BP 117/64
[2021-06-21 21:12] VITALS: BP 117/64
[2021-06-21] MEDS: LORAZEPAM 1 MG TABLET PO SCH (21:17)
[2021-06-21] MEDS: TRAZODONE 50 MG TABLET PO SCH (22:12)
--- NOTE | 2021-06-21 22:51 | NUR ---
RN NOTE PATIENT SEEN BY DR. LOVELL WITH NEW ORDER TO INCREASE ZOLOFT TO 100 MG DAILY. ORDER NOTED & CARRIED OUT. Addendum: 06/22/21 at 0016 by MARIELLE SAMANIEGO RN zoloft consent faxed to [facility] at this time.
[2021-06-22 08:00] VITALS: BP 106/61
[2021-06-22] MEDS: CEPHALEXIN MONOHYDRATE 500 MG CAPSULE PO SCH ×2 (08:44→16:13)
[2021-06-22] MEDS: SERTRALINE HCL 50 MG TABLET PO SCH (08:44)
[2021-06-22] MEDS: LORAZEPAM 0.5 MG TABLET PO SCH ×2 (08:44→13:37)
[2021-06-22] MEDS: DOCUSATE SODIUM 100 MG CAPSULE PO SCH ×2 (08:44→16:13)
[2021-06-22] MEDS: SENNOSIDES 8.6 MG TABLET PO SCH (08:44)
[2021-06-22] MEDS: PANTOPRAZOLE 40 MG TABLET.DR PO SCH (08:44)
[2021-06-22] MEDS: AMLODIPINE BESYLATE 2.5 MG TABLET PO SCH (08:45)
[2021-06-22] MEDS: MAG HYDROX/AL HYDROX/SIMETH 30 ML UDC PO PRN ×2 (13:40→20:14)
--- NOTE | 2021-06-22 15:17 | NUR ---
GPS RN NOTE: PATIENT COMPLAINING OF CHEST PAIN NED SEVERINO NOTIFIED WITH ORDER EKG, TROPONIN STAT. ORDER PLACED PATIENT VS 136/69 P 82
[2021-06-22 16:00] VITALS: BP 136/69
--- NOTE | 2021-06-22 16:04 | NUR ---
Court Hearing: Patient's court hearing for 4740 was today and it was upheld for GD.
--- NOTE | 2021-06-22 20:14 | NUR ---
GPS-RN NOTES: INDIGESTION PATIENT C/O UPSET STOMACH. PATIENT REQUESTED FOR MAALOX. PRN MAALOX 30ML PO GIVEN ORDERED. WILL CONTINUE TO MONITOR.
[2021-06-22 21:00] VITALS: BP 113/58
[2021-06-22] MEDS: LORAZEPAM 1 MG TABLET PO SCH (21:16)
[2021-06-22] MEDS: TRAZODONE 50 MG TABLET PO SCH (21:16)
[2021-06-23 08:00] VITALS: BP 101/59
[2021-06-23] MEDS: DOCUSATE SODIUM 100 MG CAPSULE PO SCH ×2 (09:00→17:27)
[2021-06-23] MEDS: SERTRALINE HCL 50 MG TABLET PO SCH (11:29)
[2021-06-23] MEDS: MAGNESIUM HYDROXIDE 30 ML UDC PO PRN (11:29)
[2021-06-23] MEDS: AMLODIPINE BESYLATE 2.5 MG TABLET PO SCH (11:30)
[2021-06-23] MEDS: CEPHALEXIN MONOHYDRATE 500 MG CAPSULE PO SCH ×2 (11:30→17:27)
[2021-06-23] MEDS: LORAZEPAM 0.5 MG TABLET PO SCH ×2 (11:31→13:25)
[2021-06-23] MEDS: PANTOPRAZOLE 40 MG TABLET.DR PO SCH (11:31)
[2021-06-23] MEDS: SENNOSIDES 8.6 MG TABLET PO SCH (11:31)
[2021-06-23 16:00] VITALS: BP 123/62
--- NOTE | 2021-06-23 19:03 | NUR ---
PATIENT IN A BETTER MOOD THAN USUAL, ENCOURAGED TO CHOOSE TO BE HAPPY OPPOSED TO SAD, REDIRECTED SHE HAS A CHOICE TO EITHER CHOOSE TO BE MISERABLE AND UNHAPPY OR SHE CAN MAKE THE BEST OF IT AND BE HAPPY, ENCOURAGED TO TRY TO FEEL BRADEN FOR AT LEAST HOUR TO SIMPLY TRY SO SHE SAID SHE WOULD TRY AND AFTER A WHILE SHE DID SEEM MORE AT [facility] AND HAD SOME BRADEN FOR A WHILE, ATE DINNER NO ASPIRATIONS NOTED, EDUCATED ON WHY SHE WAS ON BLOOD PRESSURE MEDICATIONS AND HOW THIS HELPS MAINTAIN A HEALTHY BASELINE RANGE FOR HER B/P STATED SHE WOULD TALK TO HER MD ABOUT IT AND REQUEST TO BE OFF OF IT SOON. NO C/O PAIN, NO DISTRESS NOTED. IN BED RESTING AT THIS TIME.
[2021-06-23 20:03] VITALS: BP 136/72
[2021-06-23 20:16] VITALS: BP 136/72
[2021-06-23] MEDS: LORAZEPAM 1 MG TABLET PO SCH (21:15)
[2021-06-23] MEDS: TRAZODONE 50 MG TABLET PO SCH (21:16)
--- NOTE | 2021-06-24 06:05 | NUR ---
TOOK ALL MEDS, SLEPT DURING SHIFT, NO BEHAVIOR DISTURBANCE.
[2021-06-24] MEDS: PANTOPRAZOLE 40 MG TABLET.DR PO SCH (07:30)
[2021-06-24 08:00] VITALS: BP 130/81
[2021-06-24] MEDS: DOCUSATE SODIUM 100 MG CAPSULE PO SCH ×2 (09:56→16:09)
[2021-06-24] MEDS: SERTRALINE HCL 50 MG TABLET PO SCH (09:57)
[2021-06-24] MEDS: CEPHALEXIN MONOHYDRATE 500 MG CAPSULE PO SCH ×2 (09:57→16:08)
[2021-06-24] MEDS: AMLODIPINE BESYLATE 2.5 MG TABLET PO SCH (09:57)
[2021-06-24] MEDS: LORAZEPAM 0.5 MG TABLET PO SCH ×2 (09:57→13:24)
[2021-06-24] MEDS: SENNOSIDES 8.6 MG TABLET PO SCH (09:57)
[2021-06-24] MEDS: MAGNESIUM HYDROXIDE 30 ML UDC PO PRN (11:14)
--- NOTE | 2021-06-24 11:15 | NUR ---
DESHAUNCO: MOM GIVEN FOR C/O CONSTIPATION.
[2021-06-24 16:00] VITALS: BP 134/67
[2021-06-24 20:15] VITALS: BP 145/73
[2021-06-24] MEDS: TRAZODONE 50 MG TABLET PO SCH (21:09)
[2021-06-24] MEDS: LORAZEPAM 1 MG TABLET PO SCH (21:10)
[2021-06-25] MEDS: PANTOPRAZOLE 40 MG TABLET.DR PO SCH (07:30)
[2021-06-25 08:00] VITALS: BP 102/61
--- NOTE | 2021-06-25 10:26 | NUR ---
RN-CO: NED SEVERINO CLIP ON SUNGLASSES INSPECTOR MADE AWARE ABOUT THE PT'S ON AND OFF C/O MILD TO MODERATE ABDOMINAL PAIN. CLIP ON SUNGLASSES INSPECTOR ORDERED UA, NOTED.
[2021-06-25] MEDS: MAGNESIUM HYDROXIDE 30 ML UDC PO PRN (10:34)
[2021-06-25] MEDS: SENNOSIDES 8.6 MG TABLET PO SCH (10:35)
[2021-06-25] MEDS: LORAZEPAM 0.5 MG TABLET PO SCH ×2 (10:35→13:12)
[2021-06-25] MEDS: DOCUSATE SODIUM 100 MG CAPSULE PO SCH ×2 (10:35→16:49)
[2021-06-25] MEDS: CEPHALEXIN MONOHYDRATE 500 MG CAPSULE PO SCH ×2 (10:35→16:49)
[2021-06-25] MEDS: SERTRALINE HCL 50 MG TABLET PO SCH (10:36)
[2021-06-25] MEDS: AMLODIPINE BESYLATE 2.5 MG TABLET PO SCH (10:36)
[2021-06-25] MEDS: MAG HYDROX/AL HYDROX/SIMETH 30 ML UDC PO PRN (13:43)
--- NOTE | 2021-06-25 13:44 | NUR ---
RN-CO> MAALOX GIVEN FOR C/O HEARTBURN.
[2021-06-25 16:00] VITALS: BP 119/66
[2021-06-25 19:54] VITALS: BP 117/64
[2021-06-25] MEDS: LORAZEPAM 1 MG TABLET PO SCH (21:19)
[2021-06-25] MEDS: TRAZODONE 50 MG TABLET PO SCH (21:50)
[2021-06-25] MEDS: TEMAZEPAM 7.5 MG CAPSULE PO PRN (23:38)
--- NOTE | 2021-06-25 23:41 | NUR ---
GPS RN NOTES: PATIENT REQUESTED FOR SLEEP MEDICATION D/T INSOMNIA. RESTORIL 7.5MG GIVEN PO AT 2338. WILL CONTINUE TO MONITOR.
[2021-06-26] MEDS: PANTOPRAZOLE 40 MG TABLET.DR PO SCH (07:30)
[2021-06-26 08:00] VITALS: BP 95/51
[2021-06-26] MEDS: AMLODIPINE BESYLATE 2.5 MG TABLET PO SCH (09:00)
[2021-06-26] MEDS: SERTRALINE HCL 50 MG TABLET PO SCH (09:12)
[2021-06-26] MEDS: CEPHALEXIN MONOHYDRATE 500 MG CAPSULE PO SCH ×2 (09:12→16:46)
[2021-06-26] MEDS: SENNOSIDES 8.6 MG TABLET PO SCH (09:12)
[2021-06-26] MEDS: LORAZEPAM 0.5 MG TABLET PO SCH ×2 (09:13→12:29)
[2021-06-26] MEDS: DOCUSATE SODIUM 100 MG CAPSULE PO SCH ×2 (09:13→16:46)
--- NOTE | 2021-06-26 14:31 | NUR ---
SW Note: Pt continues to endorse feeling "scared". Pt appears to be tearful and stating that she is depressed and has anxiety. Pt reported that she has no "family" who cares about her. Pt stated she does not want to go anywhere. Pt expressed she feels that she is homeless. SW encouraged pt to motivate herself and provided some coping skills. Pt stated "I don't want too". SW actively listened to pt and attempted to provided support.
[2021-06-26 16:00] VITALS: BP_SYST 121; BP_SYST 133; BP_DIAS 76
[2021-06-26 20:27] VITALS: BP 119/58
--- NOTE | 2021-06-26 21:20 | NUR ---
GPS RN NOTE HS MEDS GIVEN. PT REQUESTING FOR SLEEPING MED RESTORIL 7.5 MG PO GIVEN. CONTINUE TO MONITOR HER.
[2021-06-26] MEDS: LORAZEPAM 1 MG TABLET PO SCH (21:30)
[2021-06-26] MEDS: TEMAZEPAM 7.5 MG CAPSULE PO PRN (21:30)
[2021-06-26] MEDS: TRAZODONE 50 MG TABLET PO SCH (21:30)
[2021-06-26 21:55] LABS: BILIRUBIN,URINE NEGATIVE (NEGATIVE); COLOR,URINE YELLOW (YELLOW); LEUKOCYTE ESTERASE ,URINE NEGATIVE (NEGATIVE); NITRITE, URINE NEGATIVE (NEGATIVE); PROTEIN,URINE NEGATIVE (NEGATIVE); UGLUCOSE NEGATIVE (NEGATIVE); UROBILINOGEN,URINE 0.2 EU/dL (0.2)
--- NOTE | 2021-06-26 22:20 | NUR ---
GPS RN NOTE PT FALLING ASLEEP ON AND OFF. CONTINUE TO MONITOR HER.
[2021-06-27] MEDS: PANTOPRAZOLE 40 MG TABLET.DR PO SCH (07:30)
[2021-06-27 08:00] VITALS: BP 92/54
[2021-06-27] MEDS: AMLODIPINE BESYLATE 2.5 MG TABLET PO SCH (09:00)
[2021-06-27] MEDS: SENNOSIDES 8.6 MG TABLET PO SCH (09:19)
[2021-06-27] MEDS: SERTRALINE HCL 50 MG TABLET PO SCH (09:19)
[2021-06-27] MEDS: CEPHALEXIN MONOHYDRATE 500 MG CAPSULE PO SCH (09:20)
[2021-06-27] MEDS: DOCUSATE SODIUM 100 MG CAPSULE PO SCH ×2 (09:20→17:33)
[2021-06-27] MEDS: LORAZEPAM 0.5 MG TABLET PO SCH ×2 (09:20→13:55)
[2021-06-27] MEDS: MAG HYDROX/AL HYDROX/SIMETH 30 ML UDC PO PRN (11:23)
--- NOTE | 2021-06-27 15:30 | NUR ---
SW Note: SW met with patient for individual counseling. Patient appeared to be tearful and depressed. Patient stated "I don't want to live anymore". SW encouraged pt coping skills. SW emotional listened and provided support for pt. SW took pt outside for some fresh air and hand session outside. Towards end pt appeared to be a little calm. SW notified pt's current symptoms to pt's assigned nurse. Nurse contacted ANGEL Snyder and requested Ativan PRN.
[2021-06-27] MEDS ORDERED: LORAZEPAM 0.5 MG TABLET PO STA (15:35)
--- NOTE | 2021-06-27 15:39 | NUR ---
PATIENT AGITATED AND YELLING /CRYING UNRIEN ASSISTANT STORE MANAGER SALES NOTIFIED WITH NEW ORDER .MEDICATED WITH ATIVAN 0.5MG WILL CONTINUE TO MONITOR .
[2021-06-27 16:08] VITALS: BP 129/76
[2021-06-27 20:00] VITALS: BP 95/56
[2021-06-27 20:30] VITALS: BP 95/56
[2021-06-27 21:21] VITALS: BP 103/60
[2021-06-27] MEDS: LORAZEPAM 1 MG TABLET PO SCH (21:22)
[2021-06-27] MEDS: TRAZODONE 50 MG TABLET PO SCH (22:01)
--- NOTE | 2021-06-28 06:56 | NUR ---
RN NOTE PATIENT SLEPT WELL AT NIGHT. NO BEHAVIOR EPISODES NOTED THROUGHOUT THE SHIFT. REDIRECTABLE.
[2021-06-28] MEDS: PANTOPRAZOLE 40 MG TABLET.DR PO SCH ×2 (07:42→10:45)
[2021-06-28 08:00] VITALS: BP 104/64
--- NOTE | 2021-06-28 09:45 | NUR ---
RN-CO: PT REFUSED ALL HER PO MEDICATIONS, SHE IS ANGRY AND COMBATIVE. RESPONDING TO INTERNAL STIMULI. HALDOL 2 MG IM GIVEN. (PT IS REISED.) Addendum: 06/28/21 at 0947 by FOX BRADSHAW RN RN-CO: WRONG CHARTING!! INTENDED FOR ANOTHER PT.
[2021-06-28] MEDS: MAG HYDROX/AL HYDROX/SIMETH 30 ML UDC PO PRN (10:44)
[2021-06-28] MEDS: DOCUSATE SODIUM 100 MG CAPSULE PO SCH ×2 (10:45→16:56)
[2021-06-28] MEDS: SENNOSIDES 8.6 MG TABLET PO SCH (10:45)
[2021-06-28] MEDS: LORAZEPAM 0.5 MG TABLET PO SCH ×2 (10:45→12:03)
[2021-06-28] MEDS: busPIRone 5 MG TABLET PO SCH ×2 (10:45→16:55)
[2021-06-28] MEDS: AMLODIPINE BESYLATE 2.5 MG TABLET PO SCH (10:46)
[2021-06-28] MEDS: SERTRALINE HCL 50 MG TABLET PO SCH (10:47)
--- NOTE | 2021-06-28 10:52 | NUR ---
RN-CO: MAALOX GIVEN FOR C/O HYPERACIDITY.
--- NOTE | 2021-06-28 11:40 | NUR ---
RN-CO: Rosario is focus on Ativan, she just woke up from sleep and asking for Ativan again. She is accusing RN that she gave the smaller dose that is why is ineffective.She stated " no one is helping her in this unit since she cannot have extra Ativan. made aware.
--- NOTE | 2021-06-28 12:05 | NUR ---
RN-CO: Patient c/o nausea, Dr Bartholomew seen her and ordered Zofran q 6 hrs as needed.
[2021-06-28] MEDS: ONDANSETRON 4 MG TAB.RAPDIS PO PRN (13:44)
[2021-06-28 16:00] VITALS: BP 140/74
--- NOTE | 2021-06-28 16:56 | NUR ---
RN-CO: PT REFUSED ALL HER PM MEDICATIONS , SHE STATED " IT WILL NOT HELP ME ANYMORE."
--- NOTE | 2021-06-28 17:22 | NUR ---
RN-CO: NOTIFIED JUAN GALVAN ANIMAL ANATOMIST REGARDING PT PANIC ATTACK AND FREQUENT SCREAMING. ANIMAL ANATOMIST ORDERED ATIVAN 0.25 MG PO ONE TIME, NOTED AND CARRIED OUT.
[2021-06-28] MEDS ORDERED: LORAZEPAM 0.5 MG TABLET PO ONE (17:30)
[2021-06-28 20:00] VITALS: BP 128/76
[2021-06-28 20:15] VITALS: BP 128/76
[2021-06-28] MEDS: LORAZEPAM 1 MG TABLET PO SCH (21:36)
[2021-06-28] MEDS: TRAZODONE 50 MG TABLET PO SCH (22:11)
[2021-06-29 00:36] VITALS: BP 86/55
--- NOTE | 2021-06-29 00:37 | NUR ---
RN NOTE: LOW BLOOD PRESSURE PATIENT WANTED TO TAKE RESTORIL DUE TO UNABLE TO SLEEP, VITALS CHECKED MULTIPLE TIMES BEFORE GIVING RESTORIL AND VITALS ARE 86/55, 87, 18, 97.5, 95% AT RA. PATIENT DENIES DIZZINESS, LIGHT HEADEDNESS, BLURRED VISION, NAUSEA AT THIS TIME AND INSISTED TO TAKE RESTORIL. RISKS OF TAKING RESTORIL EXPLAINED TO THE PATIENT SINCE PATIENT IS FOCUSED ON MEDICATIONS. PATIENT VERBALIZED UNDERSTANDING. OFFERED SNACK AND PO FLUIDS AND TOLERATED WELL. WILL RECHECK VITALS. WILL CONTINUE TO MONITOR FOR ANY CHANGE OF CONDITION.
[2021-06-29 02:15] VITALS: BP 102/63
--- NOTE | 2021-06-29 02:20 | NUR ---
RN NOTE RECHECKED PATIENT;S VITALS 102/63, 80, 18, 97.6, 97% AT RA. PATIENT IS SLEEPING INTERMITTENTLY. NO ACUTE CHANGES NOTED AT THIS TIME. ENCOURAGED PO FLUIDS TO THE PATIENT. WILL CONTINUE TO MONITOR CLOSELY.
[2021-06-29 08:00] VITALS: BP 112/62
[2021-06-29] MEDS: LORAZEPAM 0.5 MG TABLET PO SCH ×2 (08:16→12:19)
[2021-06-29] MEDS: SERTRALINE HCL 50 MG TABLET PO SCH (08:17)
[2021-06-29] MEDS: SENNOSIDES 8.6 MG TABLET PO SCH (08:17)
[2021-06-29] MEDS: PANTOPRAZOLE 40 MG TABLET.DR PO SCH (08:18)
[2021-06-29] MEDS: DOCUSATE SODIUM 100 MG CAPSULE PO SCH ×2 (08:18→16:27)
[2021-06-29] MEDS: AMLODIPINE BESYLATE 2.5 MG TABLET PO SCH ×2 (08:18→08:23)
[2021-06-29] MEDS: busPIRone 5 MG TABLET PO SCH ×2 (08:18→16:27)
[2021-06-29] MEDS: MAGNESIUM HYDROXIDE 30 ML UDC PO PRN (11:20)
[2021-06-29] MEDS: ONDANSETRON 4 MG TAB.RAPDIS PO PRN (13:23)
[2021-06-29 16:00] VITALS: BP 135/74
[2021-06-29 20:00] VITALS: BP 117/68
[2021-06-29] MEDS: LORAZEPAM 1 MG TABLET PO SCH (21:13)
--- NOTE | 2021-06-29 21:20 | NUR ---
RN NOTES: ATIVAN 1 MG PO SCHEDULE GIVEN PER PT. REQUEST AT THIS TIME , WILL CONTINUE TO MONITOR.
[2021-06-29] MEDS: TRAZODONE 50 MG TABLET PO SCH (22:08)
[2021-06-30 08:00] VITALS: BP 125/87
--- NOTE | 2021-06-30 08:15 | NUR ---
Discharge Note: Patient will be discharged to a [facility] located at [address] [place] [address]; ([phone]) Please arrange ambulance transportation. Vessel Slagman spoke with Omar, Life Sciences Director at [facility] ([phone]) stated patient will be accepted at facility today. Patient is alert and oriented x2, and is not able to plan for self-care at this time, but is willing to accept care provided for her at the facility. Patient denies any suicidal or homicidal ideations. Patient is aware and agreeable with discharge plans. Patients daughter Renuka ([phone]) is aware and agreeable with discharge. Patient will continue to follow-up with her (Psychiatrist) located at [address], [place] [address]; ([phone]) and (Looping Inspector) Dr. Swanson [address], [place] [address]; ([phone]). Patient presents with euthymic mood and congruent affect.
[2021-06-30] MEDS: LORAZEPAM 0.5 MG TABLET PO SCH ×2 (08:58→12:12)
[2021-06-30] MEDS: SENNOSIDES 8.6 MG TABLET PO SCH (08:58)
[2021-06-30] MEDS: SERTRALINE HCL 50 MG TABLET PO SCH (08:58)
[2021-06-30] MEDS: DOCUSATE SODIUM 100 MG CAPSULE PO SCH (08:58)
[2021-06-30] MEDS: AMLODIPINE BESYLATE 2.5 MG TABLET PO SCH ×2 (08:59→09:00)
[2021-06-30] MEDS: PANTOPRAZOLE 40 MG TABLET.DR PO SCH (08:59)
[2021-06-30 09:00] VITALS: BP 125/87
[2021-06-30] MEDS ORDERED: busPIRone 5 MG TABLET PO SCH (09:00)
--- NOTE | 2021-06-30 09:44 | NUR ---
Luke ORTIZ gave an order to D/C hold and D/C to [facility] and to follow with psych and medical doctors. Luke ORTIZ reconciled on meds to continue in the facility. Pt. without distress, denies suicidal and homicidal, belongings ready and discharge papers ready.
[2021-06-30] MEDS: MAGNESIUM HYDROXIDE 30 ML UDC PO PRN (10:59)
--- NOTE | 2021-06-30 11:14 | NUR ---
Pt. refused for skin picture. Report given to Preeti over the facility.
--- NOTE | 2021-06-30 11:59 | NUR ---
Dr. Bartholomew in the unit and made aware of the discharge and said to continue same meds including prn. Pt. signed the discharge papers.
--- NOTE | 2021-06-30 13:25 | NUR ---
Pt. left the unit via ambulance and transported via a gurney with belongings. V/S taken : BP 119/73, DC 91, RR 18 and oxygen sat 98%. Left without distress and no agitation noted.
== END 2021-06-30 13:25 | DRG 881 ==
LOC: ER 21:53 → GPS 06-15 01:12
PROVIDERS: ADMIT Psychiatry & Neurology Psychiatry
DX: F32.A Depression, unspecified (principal); E43 Unspecified severe protein-calorie malnutrition; N39.0 Urinary tract infection, site not specified; F23 Brief psychotic disorder; R45.851 Suicidal ideations; Z85.3 Personal history of malignant neoplasm of breast; I10 Essential (primary) hypertension; Z79.899 Other long term (current) drug therapy; Z73.6 Limitation of activities due to disability; Z91.81 History of falling; Z91.51 Personal history of suicidal behavior; F41.9 Anxiety disorder, unspecified; R27.8 Other lack of coordination; B96.89 Other specified bacterial agents as the cause of diseases classified elsewhere; F41.0 Panic disorder [episodic paroxysmal anxiety]
CPT/HCPCS: 36415; 80048-TC; 80053-TC; 80061-TC; 80076-TC; 81001; 84484-TC; 85025-TC; 87081-TC; 87086-TC; C9803; G0480; Q0162

== ENCOUNTER 2021-10-25 18:30 | Emergency (ER) | payer MEDICARE, OTHER ==
[~2021-10-25] VITALS: Ht 162.6 cm; Wt 61.2 kg
[~2021-10-25 18:30] MED LIST changes: +AMLO2.5T4 PO; +DOCU-141 PO; -ESCI10TA PO; -LORA-259 PO; +PANT40TA2 PO; +SENN-18 PO; -TRAZ-182 PO
--- NOTE | 2021-10-25 19:00 | NUR ---
ADAN FROM [facility] C/O BACK OF THE HEAD PAIN AND BUMP X 2 DAYS S/P GLF. -LOC PER REPORT. PATIENT IN BED 04 AWAITING MD IBRAHIM ON MONITOR AND POX.
--- NOTE | 2021-10-25 19:46 | NUR ---
20G IV LINE ESTABLISHED AT [facility]. BLOOD DRAWN AND SENT TO LAB.
--- NOTE | 2021-10-25 19:47 | NUR ---
URINE COLLECTED AND SENT TO LAB
[2021-10-25 20:10] LABS: BILIRUBIN,URINE NEGATIVE (NEGATIVE); COLOR,URINE YELLOW (YELLOW); LEUKOCYTE ESTERASE ,URINE NEGATIVE (NEGATIVE); NITRITE, URINE NEGATIVE (NEGATIVE); PROTEIN,URINE NEGATIVE (NEGATIVE); UGLUCOSE NEGATIVE (NEGATIVE); UROBILINOGEN,URINE 0.2 EU/dL (0.2)
[2021-10-25 20:12] LABS: BASOPHILS % (AUTO) 0.7 % (0.0-2.0); EOSINOPHILS % (AUTO) 1.8 % (0.0-6.0); HEMATOCRIT 41 % (33-45); HEMOGLOBIN 13.3 g/dL (11.5-14.8); LYMPHOCYTES # (AUTO) 1.2 K/uL (0.8-4.8); LYMPHOCYTES % (AUTO) 21.4 % (20.0-44.0); MEAN CORPUSCULAR HGB CONC 33 g/dl (31.0-36.0); MEAN CORPUSCULAR VOLUME 90 fL (82-100); MONOCYTES # (AUTO) 0.4 K/uL (0.1-1.30); MONOCYTES % (AUTO) 7.5 % (2.0-12.0); NEUTROPHILS # (AUTO) 3.9 K/uL (1.8-8.9); NEUTROPHILS % (AUTO) 68.6 % (43.0-81.0); PLATELET COUNT (AUTO) 214 K/uL (150-450); RED BLOOD CELL COUNT(AUTO) 4.52 MIL/uL (4.0-5.2); WHITE BLOOD COUNT (AUTO) 5.7 K/uL (4.3-11.0)
[2021-10-25 20:46] LABS: CALCIUM, SERUM 8.5 mg/dL (8.5-10.1); CARBON DIOXIDE 30 mmol/L (21-32); CHLORIDE 104 mmol/L (98-107); CREATININE 0.9 mg/dL (0.6-1.3); GLUCOSE 109 mg/dL (74-106); POTASSIUM 3.7 mmol/L (3.5-5.1); SODIUM SERUM 141 mmol/L (136-145); UREA NITROGEN, BLOOD 12 mg/dL (7-18)
[2021-10-25 20:54] LABS: ALANINE AMINOTRANSFERASE 11 U/L (12-78); ALBUMIN 3.2 g/dL (3.4-5.0); ALKALINE PHOSPHATASE 111 U/L (46-116); ASPARTATE AMINOTRANSFERASE 8 U/L (15-37); BILIRUBIN,DIRECT 0.1 mg/dL (0.0-0.2); BILIRUBIN,TOTAL 0.3 mg/dL (0.2-1.0); TOTAL PROTEIN, SERUM 6.4 g/dL (6.4-8.2)
--- NOTE | 2021-10-25 21:14 | NUR ---
followed up with deidre regarding ct result.
--- NOTE | 2021-10-25 21:53 | NUR ---
Called [facility] for transport out of [facility] back to pt's SNF. [facility] ETA 10-15 min.
--- NOTE | 2021-10-25 22:06 | NUR ---
REPORT GIVEN TO [facility]DA[facility] CHRISTY KELLER
--- NOTE | 2021-10-25 22:39 | NUR ---
PT DISCHARGED BACK TO [facility]. REPORT GIVEN TO DISH ROOM WORKER AT BEDSIDE. WRITTEN AND VERBAL DISCHARGE INSTRUCTIONS PROVIDED AND PT VERBALIZES UNDERSTANDING OF INSTRUCTIONS. IV LINE REMOVED AND V/S STABLE AT TIME OF DISCHARGE.
[2021-10-25 23:49] VITALS: BP 129/76
== END 2021-10-25 22:50 | disposition home or self-care (01) ==
LOC: ER 18:41
DX: R26.81 Unsteadiness on feet (principal); I10 Essential (primary) hypertension; Z85.3 Personal history of malignant neoplasm of breast; Z87.39 Personal history of other diseases of the musculoskeletal system and connective tissue; Z79.899 Other long term (current) drug therapy
CPT/HCPCS: 36415; 70450-TC; 71045-TC; 80048-TC; 80076-TC; 84484-TC; 85025-TC; 85730-TC